=== PATIENT | female | born 1960 | race American Indian/Alaskan Native ===

== ENCOUNTER 2019-10-30 19:14 | Emergency (ER) | payer MEDICARE, MEDICAID ==
[2019-10-30 19:37] VITALS: BP 158/102
--- NOTE | 2019-10-30 20:03 | XRay Report ---
LEFT SHOULDER 3 VIEW(S) INDICATION / CLINICAL INFORMATION: deformity COMPARISON: None available. FINDINGS: BONES / JOINT(S): No acute fracture or subluxation. No significant arthritis. SOFT TISSUES: No significant abnormality. ADDITIONAL FINDINGS: Os acromiale with double density sign Signer Name: Rosalino Burrows MD Signed: 10/30/2019 7:58 PM Workstation Name: [id number]
[2019-10-30] MEDS ORDERED: IBUPROFEN 400 MG TAB PO ONE (20:19)
--- NOTE | 2019-10-30 20:28 | Emergency Department Report ---
<JACLYN ODELL - Last Filed: 10/30/19 21:03> ED General Adult HPI - General Chief complaint: Extremity Problem,Nontraumatic Stated complaint: COLLARBONE PAIN Time Seen by Provider: 10/30/19 19:55 Source: patient Mode of arrival: Ambulatory Limitations: No Limitations - History of Present Illness Initial comments: Patient is a 59-year-old female presents emergency room with complaints of left- sided clavicular pain that began last night. She denies ever having this in the past. She denies any fall or injury. She denies ever injuring in the past. She denies any numbness or weakness. She denies any cough, shortness of breath, cough, fever, nausea, vomiting, diarrhea, hematochezia, melena, chest pain. Patient states that she went to her primary care physician last week and weighed 105 pounds. She states that when we weighed her today she weighed 80 pounds. She states that she has not been doing anything to lose weight. She denies any past medical history. She states that her allergy to contrast dye is that it caused her blood pressure to go up. - Related Data Allergies Allergy/AdvReac Type Severity Reaction Status Date / Time cheese Allergy Severe Anaphylaxis Verified 10/30/19 21:26 shellfish derived Allergy Severe Anaphylaxis Verified 10/30/19 21:26 chocolate flavor Allergy Anaphylaxis Verified 10/30/19 21:26 diphenhydramine Allergy Anaphylaxis Verified 10/30/19 21:26 [From Benadryl] grass pollen Allergy Anaphylaxis Verified 10/30/19 21:26 latex Allergy Anaphylaxis Verified 10/30/19 21:26 Penicillins Allergy Anaphylaxis Verified 10/30/19 21:26 Iodinated Contrast Media AdvReac Intermediate Unknown Verified 10/30/19 21:26 ED Review of Systems Comment: All other systems reviewed and negative ED Past Medical Hx - Past Medical History Hx Asthma: Yes - Surgical History Additional Surgical History: Neck and back 07/23/19 - Social History Smoking Status: Never Smoker Substance Use Type: None ED Physical Exam - General Limitations: No Limitations General appearance: alert, in no apparent distress - Head Head exam: Present: atraumatic, normocephalic - Eye Eye exam: Present: normal appearance - ENT ENT exam: Present: mucous membranes moist - Respiratory Respiratory exam: Present: normal lung sounds bilaterally. Absent: respiratory distress, wheezes, rales, rhonchi, stridor, chest wall tenderness, accessory muscle use, decreased breath sounds, prolonged expiratory - Cardiovascular Cardiovascular Exam: Present: regular rate, normal rhythm, normal heart sounds. Absent: systolic murmur, diastolic murmur, rubs, gallop - GI/Abdominal GI/Abdominal exam: Present: soft. Absent: distended, tenderness, guarding, rebound, rigid - Extremities Exam Extremities exam: Present: other (left sided supraclavicular LAD, no erythema, no increased warmth, no clavicular ttp, clavicles are equal, no AC joint ttp, no bony shoulder ttp, no sulcus sign, FROM of the LUE, neurovascularly intact) - Neurological Exam Neurological exam: Present: alert, oriented X3 - Psychiatric Psychiatric exam: Present: normal affect, normal mood - Skin Skin exam: Present: warm, dry, intact ED Medical Decision Making - Radiology Data Radiology results: report reviewed Fluoro Time In Minutes: LEFT SHOULDER 3 VIEW(S) INDICATION / CLINICAL INFORMATION: deformity COMPARISON: None available. FINDINGS: BONES / JOINT(S): No acute fracture or subluxation. No significant arthritis. SOFT TISSUES: No significant abnormality. ADDITIONAL FINDINGS: Os acromiale with double density sign Signer Name: Rosalino Burrows MD Signed: 10/30/2019 7:58 PM Workstation Name: [id number] Transcribed By: TL Dictated By: Rosalino Burrows MD Electronically Authenticated By: Rosalino Burrows MD Signed Date/Time: 10/30/191957 DD/ 56 TD/TT: - Medical Decision Making Patient is a 59-year-old female presents emergency room with complaints of left- sided clavicular pain that began last night. She denies ever having this in the past. She denies any fall or injury. She denies ever injuring in the past. She denies any numbness or weakness. She denies any cough, shortness of breath, cough, fever, nausea, vomiting, diarrhea, hematochezia, melena, chest pain. Patient states that she went to her primary care physician last week and weighed 105 pounds. She states that when we weighed her today she weighed 80 pounds. She states that she has not been doing anything to lose weight. She denies any past medical history. She states that her allergy to contrast dye is that it caused her blood pressure to go up. on exam: left sided supraclavicular LAD, no erythema, no increased warmth, no clavicular ttp, clavicles are equal, no AC joint ttp, no bony shoulder ttp, no sulcus sign, FROM of the LUE, neurovascularly intact. XR left shoulder ordered by triage nurse prior to my examination and shows BONES / JOINT(S): No acute fracture or subluxation. No significant arthritis. SOFT TISSUES: No significant abnormality. ADDITIONAL FINDINGS: Os acromiale with double density sign. Discussed findings of possible left-sided virchow's node with Dr. Neal, ER attending who recommended to order labs, CT neck, chest, abdomen pelvis with contrast to rule out malignancy. Patient signed out to Torin Howard NP pending labs and CT scans ED Disposition Condition: Stable Referrals: PRIMARY CARE, [Primary Care Provider] - 3-5 Days <TORIN HOWARD - Last Filed: 10/31/19 01:36> ED Review of Systems ROS: Stated complaint: COLLARBONE PAIN Other details as noted in HPI ED Course Vital Signs 10/30/19 19:20 Temperature 98.2 F Pulse Rate 98 H Respiratory 18 Rate Blood Pressure 158/102 O2 Sat by Pulse 96 Oximetry ED Medical Decision Making - Lab Data Result diagrams: 10/30/19 20:54 10/30/19 20:54 - Medical Decision Making Patient was originally signed out to me for pending CT scans and labs but due to patient consulted with Dr. Neal which is aware of the patient, patient has been taken over by Dr. Neal for further evaluation and treatment. Critical care attestation.: If time is entered above; I have spent that time in minutes in the direct care of this critically ill patient, excluding procedure time.
[2019-10-30 21:35] LABS: Basophils % (Auto) 0.8 % (0.0-1.8); Eosinophils # (Auto) 0.1 K/mm3 (0.0-0.4); Eosinophils % (Auto) 2.1 % (0.0-4.3); Hematocrit 37.6 % (30.3-42.9); Hemoglobin 12.4 gm/dl (10.1-14.3); Lymphocytes # (Auto) 1.7 K/mm3 (1.2-5.4); Lymphocytes % (Auto) 48.1 % (13.4-35.0); Mean Corpuscular HGB Conc 33 % (30-34); Mean Corpuscular Volume 91 fl (79-97); Monocytes # (Auto) 0.4 K/mm3 (0.0-0.8); Monocytes % (Auto) 11.3 % (0.0-7.3); Platelet Count 75 K/mm3 (140-440); Red Blood Count 4.15 M/mm3 (3.65-5.03); Red Cell Distribution Width 14.4 % (13.2-15.2)
[2019-10-30 21:45] LABS: INR 1.06 (0.87-1.13)
[2019-10-30 21:46] LABS: Alanine Aminotransferase 33 units/L (7-56); Albumin 3.5 g/dL (3.9-5); Blood Urea Nitrogen 8 mg/dL (7-17); Calcium 8.7 mg/dL (8.4-10.2); Hemolysis Index 33; Partial Thromboplastin Time 28.7 Sec. (24.2-36.6)
[2019-10-30 21:47] LABS: BUN/Creatinine Ratio 11
--- NOTE | 2019-10-31 00:18 | Cat Scan Report ---
CT abdomen pelvis w con, CT chest w con INDICATION: Left supraclavicular LAD, r/o malignancy. TECHNIQUE: All CT scans at this location are performed using the following dose modulation technique: Automated exposure control. CONTRAST: Omnipaque 300, 100 cc IV injection. COMPARISON: None available. CT chest: Negative for lung mass, infiltrate or pleural fluid. A right middle lobe nodule measures 6 mm (series 2, image 51). A small adjacent nodule measures 3 mm. Negative for mediastinal mass or adenopathy. CT ABDOMEN: Evaluation the parenchymal organs demonstrates a mildly nodular surface of the liver. The remaining parenchymal organs are unremarkable other than a benign left renal cyst. Negative for abdominal mass, fluid or inflammation. The bowel is not dilated or thickened. CT PELVIS: Negative for pelvic mass, adenopathy or inflammation. Evaluation of the bones demonstrates a 1.4 cm sclerotic focus at the right femoral head which is favored to be benign. IMPRESSION: 1. Incidental 6 mm right pulmonary nodule. Negative for suspicious mass or active inflammatory proces s. 3. Probable early hepatic cirrhosis. INCIDENTAL PULMONARY NODULE RECOMMENDATION RECOMMENDATION: Solid Nodule size 6-8 mm -- Single - Low Risk Patient: CT at 6-12 months, then consider CT at 18-24 months - High Risk Patient: CT at 6-12 months, then CT at 18-24 months Note These recommendations do not apply to lung cancer screening, patients with immunosuppression, o r patients with known primary cancer. Note Newly detected indeterminate nodule in persons 35 years of age or older. Persons under the age of 35 should not receive follow-up unless there is a known primary cancer. Note Perifissural Nodule is a fissure-attached/subpleural, homogeneous, solid nodule that has smooth margins and an oval, lentiform, or triangular shape. They represent about 20% of nodules detected in lung cancer screening, are invariably benign, and do not require follow-up. Nodules 10 mm or larger (or those with suspicious features) will continue to be managed based on the size criteria. Low Risk Patient -- minimal or absent history of smoking and of other known risk factors. High Risk Patient -- history of smoking or of other known risk factors. Nodule dimensions are average of long and short axes, rounded to the nearest millimeter. Based on 2017 Fleischner Society Guidelines found in Radiology 2017 284:228-243. https://doi.org/10.1148/radiol.[email or web address] https://www.ncbi.nlm.nih.gov/pmc/articles/OBT7716055/ Signer Name: George Ojeda MD Signed: 10/31/2019 12:14 AM Workstation Name: [id number]
--- NOTE | 2019-10-31 00:43 | Cat Scan Report ---
CT neck w con INDICATION / CLINICAL INFORMATION: 59 years Female; Left supraclavicular LAD, r/o malignancy. TECHNIQUE: Contiguous thin cut axial images obtained through the neck following IV contrast. Sagittal and delgado l reconstructions performed by the technologist. All CT scans at this location are performed using CT dose reduction for ALARA by means of automated exposure control. COMPARISON: None available. FINDINGS: MUCOSAL SPACE: The nasopharynx, oropharynx and vallecula, oral cavity and floor of mouth, hypopharynx , and larynx are grossly normal. Prominent soft tissue is seen in the vallecula, presumably related t o lingual tonsillar tissue. Please clinically correlate. LYMPH NODES: No significant adenopathy appreciated. SALIVARY GLANDS: Parotid, submandibular, and visualized sublingual glands are within normal limits. THYROID GLAND: Unremarkable. PARANASAL SINUSES: Visualized paranasal sinuses and mastoid air cells are essentially clear. SPINE: There are a few scattered lucencies seen in the axial skeleton-I cannot exclude the possibilit y of metastatic disease or myeloma. One of these is seen in the occipital bone rightward of midline. Small lesion is suggested in various vertebrae, at multiple levels. VASCULAR STRUCTURES: Vascular structures are grossly normal in appearance. Incidental note is made of a bovine arch configuration. ADDITIONAL FINDINGS: There is posterior fusion hardware that extends from the occipital region into t he posterior elements at C2 and C4. There is significant loosening of hardware in the cervical spine region. Flexion-extension views may be helpful for further evaluation. There is fluid seen asymmetrically in the left sternoclavicular joint, when compared with the right. No evidence of osseous erosion seen. Please clinically correlate. Minimal emphysematous changes seen in the lung apices. IMPRESSION: 1. No definitive signs of adenopathy. 2. Left sternoclavicular joint fluid seen, as described above. Please quickly correlate. 3. Loosening of posterior cervical occipital fusion hardware suggested, as described above. 4. Scattered lucencies seen in the visualized skeleton-metastatic disease or myeloma cannot be exclud ed. Signer Name: Alejandro Moreno MD, III Signed: 10/31/2019 12:39 AM Workstation Name: [id number]
[2019-10-31] MEDS ORDERED: HYDROcodone/ACETAMINOPHEN 10-325MG TAB PO ONE (01:33)
[2019-10-31] MEDS ORDERED: ONDANSETRON 4 MG ODT TAB PO ONE (01:33)
--- NOTE | 2019-10-31 01:36 | Emergency Department Report ---
Blank Doc - Documentation Documentation: My examination of the patient she has some tenderness between the clavicle and the sternum but there is no erythema or warmth. Patient states that she saw her primary care physician in [facility] last week and discussed with 30 pound weight loss in the last month and a half. I discussed CT findings with the patient and concern for metastatic cancer and the need to follow-up with the primary care physician. I did give her information to our on-call physician who is Dr. Head and the patient states that she understands the urgency for follow-up.
== END 2019-10-31 01:45 | disposition home or self-care (01) ==
LOC: ED 19:14
DX: M25.512 Pain in left shoulder (principal); R51 Headache; J45.909 Unspecified asthma, uncomplicated; Z91.013 Allergy to seafood; Z88.8 Allergy status to other drugs, medicaments and biological substances; Z88.0 Allergy status to penicillin; Z91.040 Latex allergy status
CPT/HCPCS: 36415; 70491; 71260; 73030; 74177; 80053; 83690; 85025; 85610; 85730; 86140; 99285; Q9967